=== PATIENT | female | born 1995 | race Caucasian/White ===

== ENCOUNTER 2018-05-11 19:24 | Emergency (ER) | payer OTHER ==
--- NOTE | 2018-05-14 11:17 | ER ---
DATE SEEN: 05/11/2018 TIME SEEN: The patient was seen at 1920 hours. CHIEF COMPLAINT: Anxiety. HISTORY OF PRESENT ILLNESS: This 22-year-old single girl comes in with her partner. Notes she was very anxious today, said she was "tremulous", shaking, had a headache, felt dizzy, and slight nausea yesterday with similar symptoms today. She does not think she is and is sexually active, nocontraception. She was on 30 mg of Celexa daily and increased it 3 to 4 months ago to 40 mg daily, but 2 weeks ago cut it down to 30 mg because she thought maybe her symptoms of tremulousness and shakiness were function of her Celexa. She did not "feel right." Also, yesterday she had eaten "bad [place] food." She had shrimp and vomited once just before midnight yesterday. She had diarrhea 3 times a day yesterday and no diarrhea and vomiting today. She had a slice of pizza in the evening. She has mild crampy discomfort in the suprapubic region. PAST MEDICAL HISTORY: Depression and anxiety. No surgeries. No other serious illnesses or hospitalizations. MEDICATIONS: Celexa 30 mg daily. PHYSICAL EXAMINATION: VITAL SIGNS: Blood pressure 150/59 initially, dropped down to 124/78; heart rate 103 on arrival, but heart rate later after exam after she had been here 30 minutes was 71; temperature 36.7 degrees centigrade; 20 respiratory rate; and oxygen saturation 100%. GENERAL: Alert, pleasant woman, in no acute distress. HEENT: PERRLA intact. Pharynx without abnormality. Mucosa is moist. NECK: Supple. No cervical adenopathy. LUNGS: Clear without abnormality. HEART: S1, S2. No murmur. ABDOMEN: Soft. Bowel sounds were slightly increased. No tympany. No heel tap rebound. EXTREMITIES: Without abnormality. Urine test is negative. ASSESSMENT: Status post either enterotoxin-mediated gastroenteritis or transient abdominal symptoms secondary to monosodium glutamate from consuming with ir[place]i food. The patient was reassured. Gradually progressed her intake. Increase diet as tolerated. Follow up with her doctor in a week if not improved or earlier if worse. DIAGNOSIS: Gastroenteritis, probably food toxin mediated. /[id number] [id number]/ARL
== END 2018-05-11 21:04 | disposition home or self-care (01) ==
LOC: FB.ED 19:24
DX: K52.9 Noninfective gastroenteritis and colitis, unspecified (principal)
CPT/HCPCS: 81025; 99283

== ENCOUNTER 2021-01-04 05:08 | Emergency (ER) | payer SELFPAY ==
[2021-01-04] MEDS: Ketorolac 30 MG/ML SDV IVPUSH ONE (05:49)
[2021-01-04] MEDS: Metoclopramide 10 MG/2 ML SDV IVPUSH ONE (05:49)
[2021-01-04] MEDS: diphenhydrAMINE 50 MG/ML SDV IVPUSH ONE (05:50)
--- NOTE | 2021-01-04 05:53 | EDM.PDOC ---
ED HPI GENERAL MEDICAL PROBLEM - General Chief Complaint: Abdominal Pain Stated Complaint: STOMACH PAIN Time Seen by Provider: 01/04/21 05:30 Source of Information: Reports: Patient History Limitations: Reports: Other (anxiety) - History of Present Illness INITIAL COMMENTS - FREE TEXT/NARRATIVE: c/o abd pain and nausea x 3h has not slept tonight, no children, not working EMS called and started IV, gave her Zofran en route to ED pt gets lower mid abd pain several times a wk, has d/w her PCP before denies other sxs except N, no n/v had a "normal" BM in ED, no loose stool, no constipation LMP 3w ago, regular, on BC no previous abd surgery no dysuria, no f/c/d ate grilled cheese sandwich for supper smoked THC last night EMS reports THC on table, food throughout house, house unkempt EMS wondered re food poisoning pt very anxious no radiation, cramping Lower Abdomen Pain Score (Numeric/FACES): 10 - Related Data Allergies Allergy/AdvReac Type Severity Reaction Status Date / Time No Known Allergies Allergy Verified 11/01/18 20:09 Home Meds: Home Meds Citalopram Hydrobromide [Celexa] 40 mg PO DAILY 05/11/18 [History] Past Medical History Cardiovascular History: Reports: Hypertension Psychiatric History: Reports: Anxiety Social & Family History - Family History Family Medical History: No Pertinent Family History - Tobacco Use Tobacco Use Status *Q: Current Every Day Tobacco User Years of Tobacco use: 3 Packs/Tins Daily: 0.5 - Caffeine Use Caffeine Use: Reports: Coffee, Soda - Recreational Drug Use Recreational Drug Use: Yes Drug Use in Last 12 Months: Yes Recreational Drug Type: Reports: Marijuana/Hashish Recreational Drug Use Frequency: Weekly ED ROS GENERAL - Review of Systems Review Of Systems: See Below Constitutional: Reports: No Symptoms HEENT: Reports: No Symptoms Respiratory: Reports: No Symptoms Cardiovascular: Reports: No Symptoms Endocrine: Reports: No Symptoms GI/Abdominal: Reports: Abdominal Pain, Nausea. Denies: Constipation, Diarrhea, Vomiting : Reports: No Symptoms Musculoskeletal: Reports: No Symptoms Skin: Reports: No Symptoms Neurological: Reports: No Symptoms Psychiatric: Reports: No Symptoms Hematologic/Lymphatic: Reports: No Symptoms Immunologic: Reports: No Symptoms ED EXAM, GI/ABD - Physical Exam Exam: See Below Exam Limited By: No Limitations General Appearance: Alert, WD/WN, Other (very anxious) Nose: Normal Inspection Throat/Mouth: Normal Inspection, Normal Voice, No Airway Compromise Head: Atraumatic, Normocephalic Neck: Normal Inspection, Supple, Non-Tender, Full Range of Motion Respiratory/Chest: No Respiratory Distress, Lungs Clear, Normal Breath Sounds, Chest Non-Tender Cardiovascular: Regular Rate, Rhythm, No Edema, No Murmur, Other (no tachy despite anxiety) GI/Abdominal Exam: Normal Bowel Sounds, Soft, No Organomegaly, No Distention, Other (very soft, mild tender in epigastric, striae, inc'd adipose, very good BS x 4) Back Exam: Normal Inspection, Full Range of Motion. No: CVA Tenderness (R), CVA Tenderness (L) Extremities: Normal Inspection, Normal Range of Motion, Non-Tender, No Pedal Edema Neurological: Alert, Oriented, CN II-XII Intact, Normal Cognition, No Motor/Sensory Deficits Psychiatric: Normal Affect, Normal Mood Skin Exam: Warm, Dry, Intact, Normal Color, No Rash Lymphatic: No Adenopathy Course - Vital Signs Last Recorded V/S: Last Vital Signs Temp 37.6 C 01/04/21 08:00 Pulse 95 01/04/21 08:00 Resp 18 01/04/21 08:00 BP 114/45 L 01/04/21 08:00 Pulse Ox 100 01/04/21 08:00 - Orders/Labs/Meds Orders: Active Orders 24 hr Category Date Time Status CHLAMYDIA/GC AMPLIFICATION Stat Lab 01/04/21 06:00 Received Potassium Chloride [Klor-Con M20] Med 01/04/21 08:47 Once 40 meq PO ONETIME ONE Labs: Laboratory Tests 01/04/21 01/04/21 01/04/21 Range/Units 06:00 06:00 06:06 WBC 22.6 H (3.0-10.3) x10-3/uL RBC 4.19 (3.60-5.20) x10(6)uL Hgb 12.7 (11.4-15.5) g/dL Hct 37.6 (34.2-48.2) % MCV 89.8 (76.7-100.5) fL MCH 30.4 (23.9-33.9) pg MCHC 33.8 (31.9-34.8) g/dL RDW 12.5 (12.3-16.5) % Plt Count 262 (151-488) x10(3)uL MPV 7.3 (7.1-12.4) fL Add Manual Diff Yes Neutrophils % (Manual) 79 (46-82) % Band Neutrophils % 4 (0-6) % Lymphocytes % (Manual) 17 (13-37) % Sodium (135-145) mmol/L Potassium (3.5-5.3) mmol/L Chloride (100-110) mmol/L Carbon Dioxide (21-32) mmol/L BUN (7-18) mg/dL Creatinine (0.55-1.02) mg/dL Est Cr Clr Drug Dosing Estimated GFR (MDRD) (>60) BUN/Creatinine Ratio (9-20) Glucose (80-116) mg/dL Calcium (8.6-10.2) mg/dL Total Bilirubin (0.1-1.3) mg/dL AST (5-25) IU/L ALT (12-36) U/L Alkaline Phosphatase (56-112) IU/L C-Reactive Protein (0.5-0.9) mg/dL Total Protein (6.0-8.0) g/dL Albumin (3.5-5.2) g/dL Globulin g/dL Albumin/Globulin Ratio Urine Color Yellow (YELLOW) Urine Appearance Cloudy (CLEAR) Urine pH 5.0 (5.0-6.5) Ur Specific [place] 1.020 (1.010-1.025) Urine Protein Negative (NEGATIVE) mg/dL Urine Glucose (UA) Normal (NORMAL) mg/dL Urine Ketones 150 H (NEGATIVE) mg/dL Urine Occult Blood Negative (NEGATIVE) Urine Nitrite Negative (NEGATIVE) Urine Bilirubin Negative (NEGATIVE) Urine Urobilinogen Normal (NEGATIVE) mg/dL Ur Leukocyte Esterase Moderate H (NEGATIVE) Urine RBC 0-5 (0-5) Urine WBC 0-5 (0-5) Ur Squamous Epith Cells Many H (NS,R,O) Urine Bacteria Few H (NS) Urine Mucus Few H (NS) Urine Opiates Screen Negative (NEGATIVE) Ur Oxycodone Screen Negative (NEGATIVE) Ur Propoxyphene Screen Negative (NEGATIVE) Ur Barbituates Screen Negative (NEGATIVE) Ur Tricyclics Screen Negative (NEGATIVE) Ur Phencyclidine Scrn Negative (NEGATIVE) Ur Amphetamine Screen Negative (NEGATIVE) Urine MDMA Screen Negative (NEGATIVE) U Benzodiazepines Scrn Negative (NEGATIVE) U Cocaine Metab Screen Negative (NEGATIVE) U Marijuana (THC) Screen Positive H (NEGATIVE) 01/04/21 01/04/21 Range/Units 06:06 06:06 WBC (3.0-10.3) x10-3/uL RBC (3.60-5.20) x10(6)uL Hgb (11.4-15.5) g/dL Hct (34.2-48.2) % MCV (76.7-100.5) fL MCH (23.9-33.9) pg MCHC (31.9-34.8) g/dL RDW (12.3-16.5) % Plt Count (151-488) x10(3)uL MPV (7.1-12.4) fL Add Manual Diff Neutrophils % (Manual) (46-82) % Band Neutrophils % (0-6) % Lymphocytes % (Manual) (13-37) % Sodium 139 (135-145) mmol/L Potassium 3.4 L (3.5-5.3) mmol/L Chloride 102 (100-110) mmol/L Carbon Dioxide 21 (21-32) mmol/L BUN 11 (7-18) mg/dL Creatinine 0.8 (0.55-1.02) mg/dL Est Cr Clr Drug Dosing TNP Estimated GFR (MDRD) > 60 (>60) BUN/Creatinine Ratio 13.8 (9-20) Glucose 131 H (80-116) mg/dL Calcium 8.9 (8.6-10.2) mg/dL Total Bilirubin 0.4 (0.1-1.3) mg/dL AST 14 (5-25) IU/L ALT 20 (12-36) U/L Alkaline Phosphatase 57 (56-112) IU/L C-Reactive Protein 1.8 H (0.5-0.9) mg/dL Total Protein 7.6 (6.0-8.0) g/dL Albumin 3.9 (3.5-5.2) g/dL Globulin 3.7 g/dL Albumin/Globulin Ratio 1.1 Urine Color (YELLOW) Urine Appearance (CLEAR) Urine pH (5.0-6.5) Ur Specific [place] (1.010-1.025) Urine Protein (NEGATIVE) mg/dL Urine Glucose (UA) (NORMAL) mg/dL Urine Ketones (NEGATIVE) mg/dL Urine Occult Blood (NEGATIVE) Urine Nitrite (NEGATIVE) Urine Bilirubin (NEGATIVE) Urine Urobilinogen (NEGATIVE) mg/dL Ur Leukocyte Esterase (NEGATIVE) Urine RBC (0-5) Urine WBC (0-5) Ur Squamous Epith Cells (NS,R,O) Urine Bacteria (NS) Urine Mucus (NS) Urine Opiates Screen (NEGATIVE) Ur Oxycodone Screen (NEGATIVE) Ur Propoxyphene Screen (NEGATIVE) Ur Barbituates Screen (NEGATIVE) Ur Tricyclics Screen (NEGATIVE) Ur Phencyclidine Scrn (NEGATIVE) Ur Amphetamine Screen (NEGATIVE) Urine MDMA Screen (NEGATIVE) U Benzodiazepines Scrn (NEGATIVE) U Cocaine Metab Screen (NEGATIVE) U Marijuana (THC) Screen (NEGATIVE) Meds: Medications Discontinued Medications Generic Name Dose Route Start Last Admin Trade Name Freq PRN Reason Stop Dose Admin Diphenhydramine HCl 50 mg 01/04/21 05:44 01/04/21 05:50 Benadryl IVPUSH 01/04/21 05:45 50 mg ONETIME ONE Administration Sodium Chloride 1,000 mls @ 999 mls/hr 01/04/21 05:43 01/04/21 06:11 Normal Saline IV 01/04/21 06:43 999 mls/hr .BOLUS ONE Administration Sodium Chloride 1,000 mls @ 999 mls/hr 01/04/21 06:59 01/04/21 07:01 Normal Saline IV 01/04/21 07:59 999 mls/hr .BOLUS ONE Administration Ketorolac Tromethamine 30 mg 01/04/21 05:43 01/04/21 05:49 Toradol IVPUSH 01/04/21 05:44 30 mg ONETIME ONE Administration Metoclopramide HCl 10 mg 01/04/21 05:44 01/04/21 05:49 Reglan IVPUSH 01/04/21 05:45 10 mg ONETIME ONE Administration - Re-Assessments/Exams Free Text/Narrative Re-Assessment/Exam: 01/04/21 07:05 pt much more relaxed, pain less after meds, N gone, asking if she can go home urine quite concentrated however with 150 mg/dl ketones one liter NS given, pt encouraged to wait for a 2nd a liter which is being hung now inc'd CRP of unclear etiology, abd is quite soft, had mild tender in suprapubic area on arrival with good BS throughout, now is nontender everywhere including in suprapubic area, will check GC/chlamydia suspect cramping from dehydration as cause of pain 01/04/21 08:53 at time of d/c pt was feeling fine, no pain, no nausea, soft and nontender abd, normal BS pt states she never has had such severe pain pt responded readily to meds, including diphenhydramine as an antispasmodic was given 2 liters of NS pt did have increase CRP for unclear reason, GC/chlamydia sent as a precaution Departure - Departure Time of Disposition: 08:48 Disposition: Home, Self-Care 01 Condition: Good Clinical Impression: Spasm of colon, Severe dehydration, Hypokalemia - Discharge Information *PRESCRIPTION DRUG MONITORING PROGRAM REVIEWED*: Not Applicable *COPY OF PRESCRIPTION DRUG MONITORING REPORT IN PATIENT SEBAS: Not Applicable Referrals: PCP,None [Primary Care Provider] - Forms: ED Department Discharge, ED Return to Work/School Form Additional Instructions: To prevent additional cramping and spasm, take an additional dose of ibuprofen 200 mg 3 tabs and acetaminophen 500 mg 2 tabs at noon. May repeat every 6 hours as needed if you have additional discomfort. May also soak in warm tub or shower for 10 minutes every 2 hours as needed. Rest today. Increase fluids without caffeine or alcohol. You did have mild increase in one of the inflammatory proteins (c-reactive protein was 2 times the upper limit of normal) for unclear reason, which your physician may want to repeat. To make sure that you do not have a low-grade female infection, your urine was sent for additional testing. See your physician in 2 days for further recommendations. If you feel worse or have additional severe pain, return to Emergency Department. Sepsis Event Note (ED) - Evaluation Sepsis Screening Result: No Definite Risk - Focused Exam Vital Signs: Vital Signs Temp Pulse Resp BP Pulse Ox 01/04/21 08:00 37.6 C 95 18 114/45 L 100 01/04/21 05:36 36.6 C 96 22 H 133/73 100 - My Orders Last 24 Hours: My Active Orders 01/04/21 06:00 CHLAMYDIA/GC AMPLIFICATION Stat 01/04/21 08:47 Potassium Chloride [Klor-Con M20] 40 meq PO ONETIME ONE - Assessment/Plan Last 24 Hours: My Active Orders 01/04/21 06:00 CHLAMYDIA/GC AMPLIFICATION Stat 01/04/21 08:47 Potassium Chloride [Klor-Con M20] 40 meq PO ONETIME ONE
[2021-01-04] MEDS: Sodium Chloride 0.9% 1,000 ML IV ONE ×2 (06:11→07:01)
[2021-01-04] MEDS: Potassium Chloride 20 MEQ Tab.ER PO ONE (08:59)
[2021-01-06 15:10] LABS: CHLAMYDIA TRACHOMATIS, NAA Negative (Negative); NEISSERIA GONORRHOEAE, NAA Negative (Negative)
== END 2021-01-04 09:15 | disposition home or self-care (01) ==
LOC: FB.ED 05:08
DX: K58.9 Irritable bowel syndrome, unspecified (principal); E87.6 Hypokalemia; E86.0 Dehydration; I10 Essential (primary) hypertension; Z79.899 Other long term (current) drug therapy; Z72.0 Tobacco use
CPT/HCPCS: 36415; 80053; 80305-QW; 81001; 85025; 86140; 87491; 87591; 96374; 96375; 99284; 99284-25; A9270-GY; J1200; J1885; J2765; J7030

== ENCOUNTER 2023-09-08 23:29 | Emergency (ER) | payer BC, OTHER ==
[2023-09-09] MEDS: Cyclobenzaprine 10 MG Tab PO ONE (00:07)
[2023-09-09] MEDS: Ketorolac 30 MG/ML SDV IM ONE (00:07)
[2023-09-09] MEDS: Ondansetron 4 MG Tab.DIS PO ONE (00:07)
== END 2023-09-09 01:20 | disposition home or self-care (01) ==
LOC: FB.ED 23:29
DX: G43.909 Migraine, unspecified, not intractable, without status migrainosus (principal); M54.50 Low back pain, unspecified; G89.29 Other chronic pain; Z79.899 Other long term (current) drug therapy
CPT/HCPCS: 96372; 99283; A9270-GY; J1885; Q0162